=== PATIENT | male | born 1950 | race Two or more races ===

== ENCOUNTER 2017-01-27 14:39 | Emergency (ER) | payer MEDICARE, BC ==
--- NOTE | ~2017-01-27 | ER ---
[facility] 66 Y [address] ROOM: [place] [address] LOCATION: [facility] ADMIT DATE: 01/27/2017 ER/Outpatient Report DISCHARGE DATE: 01/27/2017 FAMILY PHYSICIAN: Renea Garcia MD ATTENDING PHYSICIAN: Dario Swift Time of Arrival: 1439 hours. Time of Evaluation: 1450 hours. CHIEF COMPLAINT: Sharp pain on the top of his head. HISTORY OF PRESENT ILLNESS: This is a 66-year-old male, who presents to the ER, who states he has been having some episodes of pain on the top of his head, and it shoots down the left side of his head. He states that he is being getting these occasionally over the past several months. He states he had an episode of this today just prior to arrival. He states the pain started on the top of his head, radiated down the left side of his face. He states it was very intense and more intense than his other episode, and felt like he was going to black out today. He states he maybe feels a little bit lightheaded from this. He has had no recent illness. No fever or chills. No nausea or vomiting. No weakness. No visual disturbances. He states that they have been playing around with his pain medications. He does have to take a lot of pain medications for his neuropathy. He denies any vomiting, diarrhea, or constipation issues. ALLERGIES AND MEDICATIONS: Please see medication list in nurse's notes. PAST MEDICAL HISTORY: Jyv-sqncral-tulhgvoev diabetic, hypertension, neuropathy. PAST SURGICAL HISTORY: He has had surgery on his shoulder and a tarsal tunnel. SOCIAL HISTORY: Denies smoking or drug use. REVIEW OF SYSTEMS: A 10-point review of system was completed and was negative with the exception of those discussed in the HPI. PHYSICAL EXAMINATION: VITAL SIGNS: Weight 124 kg taken, blood pressure is 137/64, pulse 92, respirations 20, temperature 96.7 degrees tympanically, saturations 94% on PATIENT'S NAME: DIOGENES HANDY [facility] AGE: 66 Y [address] ROOM: [place] [address] LOCATION: [facility] ADMIT DATE: 01/27/2017 ER/Outpatient Report DISCHARGE DATE: 01/27/2017 FAMILY PHYSICIAN: Renea Garcia MD ATTENDING PHYSICIAN: Dario Swift room air. Eve Coma Score is 15. GENERAL: An alert, obese male, in no acute distress. HEENT: Head: Normocephalic. Eyes: Pupils are equal and reactive to light. Ears: TMs display good light reflexes bilaterally. Auditory canals clear. Nose: Turbinates pink with no drainage. Throat: No exudates or erythema. Does display moist mucous membranes. LUNGS: Clear to auscultation bilaterally. HEART: Regular rate and rhythm. EXTREMITIES: No clubbing or cyanosis. He has full range of motion of all limbs. He has equal strength bilaterally in upper and lower extremities. SKIN: Warm, dry, and intact. LABORATORY DATA AND X-RAYS: CBC: White count is 6.8, hemoglobin is 13.3, platelets 175, ANC is 4.2, INR is 0.94. CMS: Glucose was 189 otherwise unremarkable. Magnesium was 1.9. CPK is 87, CK-MB is 2.8, troponin I is less than 0.040. Urinalysis is negative for any infection. We did do an MRI of his head, which was negative, shows mild sinusitis. IMPRESSION: 1. Sharp pain, radiates on the left side of his head. 2. Mild sinusitis. 3. Diabetes. ASSESSMENT AND PLAN: The patient states he does only feel symptomatic with his sinuses. I advised he may take a decongestant if needed. He needs to do a sinus rinse. Monitor his symptoms closely. I would like him to follow up with his primary care physician for followup care. The patient and the patient's understand and agree with care. SAMIR DHALIWAL PA-C FOR MD BENITO GRIMES/ariela /[id number] d: t: 01/30/17 1650, OUTPATIENT REPORT
[~2017-01-27 14:39] MED LIST: ADVIL200 MG PO; AMARYL2 MG PO; ASPERCREME90 GM/TUBE TOP; BENADRYL25 MG PO; BENADRYL50 MG PO; CLEOCIN150 MG PO; FLORASTOR250 MG PO; GLUCOPHAGE500 MG PO; MAG-OX-400(241400 MG PO; MULTIVITAMINS1 EAC1 PO; NEURONTIN300 MG PO; NORVASC2.5 MG PO; OXYCONTIN EXTEN40 MG PO; OXYCONTIN30 MG PO; PERCOCET 10-321 EACH PO; PRINIVIL OR ZES10 MG PO; TYLENOL325 MG PO; VITAMIN B-121000 MCG PO; VITAMIN D35000 UNIT PO
[2017-01-27 15:22] LABS: BASOPHIL # 0.1 K/uL (0.0-0.2); BASOPHIL % 0.7 %; EOSINOPHIL # 0.1 K/uL (0.0-0.5); EOSINOPHIL % 1.5 %; HEMATOCRIT 39.2 % (37.0-53.0); HEMOGLOBIN 13.3 g/dL (11.0-16.0); IMMATURE GRANULOCYTE % 0.4 %; LYMPHOCYTE # 2.1 K/uL (0.8-4.0); LYMPHOCYTE % 30.9 %; MCH 30.8 pg (27.0-34.0); MCHC 33.9 gm/dL (32.0-36.5); MCV 90.7 fl (83.0-98.0); MONOCYTE # 0.3 K/uL (0.0-1.0); MPV 9.5 fl (9.4-12.4); NEUTROPHIL # (ANC) 4.2 K/uL (1.4-9.0); NEUTROPHIL % 61.5 %; NRBC % 0 /100WBC (0-0.00); PLATELET COUNT 175 K/uL (150-450); RBC 4.32 M/uL (3.50-5.50); RDW-CV 12.9 % (11.9-14.6); WBC 6.8 K/uL (4.0-11.0)
[2017-01-27 15:29] LABS: BILIRUBIN URINE NEGATIVE (NEGATIVE); BLOOD URINE NEGATIVE /UL (NEGATIVE); COLOR URINE YELLOW (YELLOW); GLUCOSE URINE NEGATIVE (NEGATIVE); KETONE URINE NEGATIVE (NEGATIVE); LEUKOCYTES URINE NEGATIVE /UL (NEGATIVE); NITRITE URINE NEGATIVE (NEGATIVE); PROTEIN URINE 15 mg/dL (NEGATIVE); TURBIDITY URINE CLEAR (CLEAR); UROBILINOGEN URINE NORMAL (NORMAL)
[2017-01-27 15:32] LABS: INR - (THERAPEUTIC) 0.94 (0.92-1.07); PROTIME 9.9 SECONDS (9.8-11.4); PTT 27 SECONDS (25-32)
[2017-01-27 15:39] LABS: BACTERIA URINE NEGATIVE (NEGATIVE); CRYSTALS URINE CALCIUM OXALATE (NEGATIVE); EPITHELIAL URINE RARE #/HPF (NEGATIVE); MUCUS URINE NEGATIVE (NEGATIVE); RBC URINE NEGATIVE #/HPF (NEGATIVE); WBC URINE RARE #/HPF (NEGATIVE)
[2017-01-27 15:42] LABS: ALBUMIN 3.8 gm/dL (3.5-5.0); ALK PHOS 95 IU/L (33-138); ALT 44 IU/L (12-78); ANION GAP 13.1 (10.0-19.0); AST 35 IU/L (10-40); BLOOD UREA NITROGEN 14 mg/dL (6-24); CALCIUM 9.2 mg/dL (8.5-10.5); CHLORIDE 105 mMol/L (96-110); CO2 26 mMol/L (22-32); CPK 87 IU/L (35-332); CREATININE 0.9 mg/dL (0.6-1.3); ESTIMATED GFR (MDRD EQUATION) > 60; MAGNESIUM 1.9 mg/dL (1.8-2.6); POTASSIUM 4.1 mMol/L (3.7-5.1); SODIUM 140 mMol/L (135-145); TOTAL PROTEIN 7.7 g/dL (6.0-8.4)
[2017-01-27 15:43] LABS: TOTAL BILIRUBIN 0.3 mg/dL (0.0-1.5)
== END 2017-01-27 16:50 | disposition disaster alternative care site (69) ==
LOC: GMED 14:39
PROVIDERS: Physician Assistant Medical
DX: J32.9 Chronic sinusitis, unspecified (principal); E11.9 Type 2 diabetes mellitus without complications; I10 Essential (primary) hypertension; Z88.0 Allergy status to penicillin; Z88.1 Allergy status to other antibiotic agents

== ENCOUNTER 2017-04-11 15:33 | Observation (INO) | payer MEDICARE, BC ==
[~2017-04-11] VITALS: Ht 185.4 cm; Wt 122.9 kg
--- NOTE | ~2017-04-11 | ER ---
PATIENT'S NAME: DIOGENES HANDY [facility] AGE: 67 Y [address] ROOM: [address] [address] [place] [facility] [place]: 04/11/2017 ER/Outpatient Report DISCHARGE DATE: FAMILY PHYSICIAN: Renea Garcia MD ATTENDING PHYSICIAN: Ami MATTA Time of Arrival: 1533 hours. Time of Evaluation: 1545 hours. CHIEF COMPLAINT: Pain, anxiety. HISTORY OF PRESENT ILLNESS: This is a 67-year-old male, who presents to the ER with his family, who states he has been dealing with neuropathy for a very long time. They state that he has tried several different treatments with no relief of his pain. He states his pain is getting worse. He states he used to have it in his legs, and now it is in his hands, up into his shoulders and into his neck. He states the pain makes him feel like he is going to have an anxiety or panic attack. He has been seeing Dr. Renea Garcia for this, and he has been described narcotic pain medication, which he has been overtaking the amount that he is supposed to. He states he has been doubling up on the medication at times. He was started on Zoloft this week for his anxiety, but he states that really has not started yet. His family also states that he has been rubbing a bottle and half of Aspercreme with 4% lidocaine about every hour per day. He states he has gone through several bottles of this over the past several weeks. He states he feels nauseated at times. He does not particularly say he has chest pain but does feel short of breath. His states he is supposed to wear a CPAP mask at night, but he is unable to because he feels like it is suffocating him. He has had no fevers, but he complains of chills. He states he does deal with constipation from all the narcotics that he takes. They state that he does have an appointment at the end of month to see Dr. Garcia in the clinic. states that they have not been sleeping at night, and she just does not know what else to do for him. ALLERGIES: PLEASE SEE MEDICATION LIST IN NURSE'S NOTES. MEDICATIONS: Please see medication list in nurse's notes. PAST MEDICAL HISTORY: 1. Noninsulin-dependent diabetic. 2. Hypertension. 3. Neuropathy. PATIENT'S NAME: DIOGENES HANDY [facility] AGE: 67 Y [address] ROOM: [address] [address] [place] [facility] [place]: 04/11/2017 ER/Outpatient Report DISCHARGE DATE: FAMILY PHYSICIAN: Renea Garcia MD ATTENDING PHYSICIAN: Ami MATTA SOCIAL HISTORY: Drinks alcohol rarely. Quit smoking 10 years ago. REVIEW OF SYSTEMS: All systems were reviewed and were negative with the exception of those discussed in the HPI. PHYSICAL EXAMINATION: VITAL SIGNS: Height 6 feet 1 inch stated, weight 122.9 kg taken, blood pressure is 166/81, pulse 94, respirations 16, temperature 98.6 degrees tympanically, and saturations 95% on room air. [place] Coma Score is 15. GENERAL: Alert, very anxious male, in ougj-oz-trhyupsb distress. HEENT: Head: Normocephalic. Eyes: Pupils are equal and reactive to light. Throat: No exudates or erythema. He does display moist mucous membranes. NECK: Supple. No lymphadenopathy. LUNGS: Clear to auscultation bilaterally. HEART: Regular rate and rhythm. ABDOMEN: Soft. He is nontender. He has good bowel sounds throughout. No masses are palpated. EXTREMITIES: No clubbing or cyanosis. He does have full range of motion of all limbs. He does have equal sensation bilaterally to upper and lower extremities. He has good pedal pulses bilaterally. NEUROLOGIC: Cranial nerves 2 through 12 grossly intact. Gait is steady without assistance. LABORATORY DATA AND X-RAYS: CBC: White count of 7.7, hemoglobin is 13.4, platelets 182, ANC is 5.2, sedimentation rate is 22. CMS: Sodium is 139, potassium 3.7, BUN is 18, creatinine is 1.0. CPK is 84, CK-MB is 2.1, troponin I is less than 0.040. CRP is less than 0.29, free T4 is 1.2, TSH is 0.827. Acetaminophen is less than 2.0. Salicylate is less than 2.8. Urinalysis was negative for any infection. Venous ABG: The pH is 7.45, pCO2 is 39, bicarb is 27.1. Lactate is 1.9. EKG shows sinus rhythm. IMPRESSION: 1. Pain from chronic neuropathy. 2. Anxiety. 3. History of diabetes. 4. History of hypertension. ASSESSMENT AND PLAN: We did establish an IV here in the emergency room and did give him some IV fluids. We did give him 1 mg of Ativan, which did calm him down nicely. The patient's family are wishing for him to stay in the hospital to get his pain PATIENT'S NAME: DIOGENES HANDY [facility] AGE: 67 Y [address] ROOM: [place] [address] [place] [facility] [place]: 04/11/2017 ER/Outpatient Report DISCHARGE DATE: FAMILY PHYSICIAN: Renea Garcia MD ATTENDING PHYSICIAN: Ami MATTA under control. I did call the Hospitalist Service, and they will be coming in to evaluate the patient here in the emergency room. I will be turning the care over to the Hospitalist at this time. The patient and patient's family understand and agree with care. SAMIR DHALIWAL PA-C FOR MD BENITO GRIMES/ariela /[id number] d: t: 04/22/17 1325, OUTPATIENT REPORT
--- NOTE | ~2017-04-11 | DS ---
PATIENT'S NAME: DIOGENES HANDY [facility] AGE: 67 Y [address] ROOM: [place] [address] [place] [facility] [place]: 04/11/2017 Discharge Summary DISCHARGE DATE: 04/12/2017 FAMILY PHYSICIAN: Renea Garcia MD ATTENDING PHYSICIAN: Ami Sims ADMITTING DIAGNOSIS: Intractable diabetic peripheral neuropathy. DISCHARGE DIAGNOSIS: Intractable diabetic peripheral neuropathy. SECONDARY DIAGNOSES: 1. General anxiety. 2. Hypertension. 3. Diabetes mellitus, type 2. 4. Obstructive sleep apnea. CONSULTATION: Neurology. HISTORY OF PRESENT ILLNESS: The patient is a 67-year-old gentleman with a past medical history of diabetic peripheral neuropathy, who presents here with intractable pain. The patient reports that for the past 1-1/2 weeks he has been experiencing severe pins and needles pain in his extremities. The patient is taking oxycodone, ibuprofen, and Percocet without adequate improvement. The patient also reports of anxiety associated with his symptoms. The patient has had multiple workups as an outpatient including Neurology visit, MRI, gabapentin use, Lyrica use, and recent stem cell therapy. HOSPITAL COURSE: The patient was admitted and was continued on Percocet and morphine IV. The patient was given a trial of carbamazepine 600 mg p.o. The patient's symptoms did not improve with the carbamazepine. Neurology consult was acquired. Neurology recommends the patient's symptoms to be treated with opiates and have Pain Clinic visit. CONDITION: Stable. DISPOSITION: Home. DISCHARGE MEDICATIONS: See MAR. DISCHARGE INSTRUCTIONS: 1. Not to drive while taking Valium. 2. Follow up with primary care physician. Greater than 30 minutes was spent on discharge planning. PATIENT'S NAME: DIOGENES HANDY [facility] AGE: 67 Y [address] ROOM: [place] [address] [place] [facility] [place]: 04/11/2017 Discharge Summary DISCHARGE DATE: 04/12/2017 FAMILY PHYSICIAN: Renea Garcia MD ATTENDING PHYSICIAN: Ami Sims MD JO SOLITARIO/ariela /[id number] d: 04/13/17 0353 t: 04/20/17 0616, DISCHARGE SUMMARY
--- NOTE | ~2017-04-11 | CON ---
PATIENT'S NAME: DIOGENES HANDY [facility] AGE: 67 Y [address] ROOM: [place] [address] [place]: [facility] [place] ADMIT DATE: 04/11/2017 Consultation DISCHARGE DATE: 04/12/2017 FAMILY PHYSICIAN: Renea Garcia MD ATTENDING PHYSICIAN: Ami Sims DATE OF CONSULTATION: 04/12/2017 REFERRING PHYSICIAN: Keli Wade MD TIME OF CONSULTATION: 12:15 p.m. CHIEF COMPLAINT: Intractable peripheral polyneuropathy. HISTORY OF PRESENT ILLNESS: This is a 67-year-old male who was seen in our Neurology Clinic in November. He has a long-standing history of polyneuropathy with extensive workup. This presents as pins and needles in his extremities, both his feet and hands. The patient is taking oxycodone, ibuprofen, and Percocet for his pain without improvement. The patient also reports feelings of anxiety associated with his symptoms. He is having a hard time sleeping and would really like further evaluation. Other things that the patient has tried include gabapentin and Lyrica and Cymbalta without any improvement. He has seen multiple physicians and neurologists for this including physicians at the [facility]. He has previously been treated with possible CIDP although that has been ruled out. Treatment with plasmapheresis and IVIG did not help at all. He has also had a punch biopsy of his left thigh, which showed epidermal nerve fiber density which is consistent with small fiber neuropathy. Unfortunately, this is a very painful neuropathy and is difficult to treat. PAST MEDICAL HISTORY: Includes, 1. Diabetes mellitus type 2. 2. Peripheral polyneuropathy. 3. Hypertension. 4. Obesity. 5. Hyperlipidemia. 6. Discomfort of submandibular region with osteomyelitis. 7. Cervical spinal stenosis. 8. Vitamin D deficiency. 9. Chronic constipation. 10. Chronic sinusitis. PAST SURGICAL HISTORY: [facility] 67 Y [address] ROOM: [place] [address] [place]: [facility] [place] ADMIT DATE: 04/11/2017 Consultation DISCHARGE DATE: 04/12/2017 FAMILY PHYSICIAN: Renea Garcia MD ATTENDING PHYSICIAN: Ami Sims Includes foot surgery and shoulder surgery. FAMILY HISTORY: He is unaware of his father's cause of and his mother has type 2 diabetes. SOCIAL HISTORY: He seldom imbibes in alcoholic beverages and quit smoking 10 years ago. 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 ALLERGIES: TO PENICILLIN AND CEFTIN. MEDICATIONS: 1. Metformin 500 mg p.o. b.i.d. 2. Glimepiride 2 mg p.o. nightly. 3. Norvasc daily. 4. Percocet 10 mg/325 p.r.n. 5. Oxycodone 10 mg p.r.n. 6. Ibuprofen 400 mg. 7. Zoloft 25 mg at night. REVIEW OF SYSTEMS: All systems were reviewed and were negative except for those mentioned in the HPI. PHYSICAL EXAMINATION: VITAL SIGNS: His blood pressure is 154/80, temperature of 98.6, pulse rate of 88, respiratory rate of 16, and oxygen saturations are 96% on room air. GENERAL APPEARANCE: The patient is alert, awake, and a good historian. He is in no acute distress and is impeccably groomed. NEUROLOGIC: He is alert and oriented x4. Moves all extremities well. Equal strength, upper and lower. Has a stocking and glove peripheral neuropathy, pins and needles pattern. Proprioception is impaired in the lower extremities. Sensation to upper and lower extremities intact. CARDIAC: S1, S2, with no murmur noted. RESPIRATORY: Clear to auscultation bilaterally. SKIN: Intact without evidence of venous staining. Peripheral pulses are 2+ in his feet. ASSESSMENT AND PLAN: Unfortunately, this individual has tried multiple modalities for his peripheral neuropathy pain. We would recommend continuing the Tegretol for at least 2 weeks to see if it is any benefit whatsoever. Since the patient has already been on multiple medications for the neuropathy, it may be best to PATIENT'S NAME: DIOGENES HANDY [facility] AGE: 67 Y [address] ROOM: [place] [address] LOC[place]: [facility] [place] ADMIT DATE: 04/11/2017 Consultation DISCHARGE DATE: 04/12/2017 FAMILY PHYSICIAN: Renea Garcia MD ATTENDING PHYSICIAN: Ami Sims consult the Pain Management Team for a possible pain pump or even some compounded creams including Lyrica and Aspercreme base. The plan of care was relayed with the patient and Dr. Sims. The patient and were at the bedside to discuss the plan of care with Dr. Pa and myself. It took us 30 minutes to examine the patient, review the extensive history on this patient from the outpatient clinic and follow up with this patient. If you have any questions, please do not hesitate to notify us. Thank you for this very interesting consult and we wish him the best of luck. KRISTAL PATEL APRN FOR IKE PA MD PP/ariela /[id number] d: 04/13/17 2148 t: 04/16/17 1623, CONSULTATION REPORT
--- NOTE | ~2017-04-11 | HP ---
PATIENT'S NAME: DIOGENES HANDY [facility] AGE: 67 Y [address] ROOM: [place] [address] [place] [facility] [place]: 04/11/2017 History & Physical DISCHARGE DATE: FAMILY PHYSICIAN: Renea Garcia MD ATTENDING PHYSICIAN: Ami MATTA DATE OF SERVICE: CHIEF COMPLAINT: Intractable peripheral polyneuropathy. HISTORY OF PRESENT ILLNESS: The patient is a 67-year-old gentleman with past medical history of diabetic peripheral neuropathy, diabetes mellitus type 2, and hypertension, who presents here with intractable pain. The patient reports that for the past one and half weeks he has been experiencing severe pins and needles pain in his extremities. He reports that he has pain in his both feet and hands. The patient is taking oxycodone, ibuprofen, and Percocet for his pain without improvement. The patient also reports of anxiety associated with this symptom. The patient is having hard time sleeping and was brought in the family for further evaluation. The patient reports that he has been on gabapentin and Lyrica in the past without any improvement and also been on Cymbalta without no improvement. He has seen multiple physicians and neurologist for his issues. He reports that he has been having this for 10 years and has had multiple workup including MRI and was empirically treated for CIDP with IVIG and plasmapheresis without improvement. The patient recently had stem-cell treatment without adequate improvement. The patient currently denies of any fever, chills, productive cough, fever, shortness of breath, chest pain, abdominal pain, nausea, vomiting, diarrhea, and constipation. PAST MEDICAL HISTORY: Diabetes mellitus, type 2, peripheral polyneuropathy, hypertension, and obesity. PAST SURGICAL HISTORY: Foot surgery and shoulder surgery. FAMILY HISTORY: Reports that his mom was type 2 diabetic and does not know why his dad . SOCIAL HISTORY: He quit smoking 10 years ago and seldomly drinks. 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 PATIENT'S NAME: DIOGENES HANDY [facility] AGE: 67 Y [address] ROOM: [place] [address] [place] [facility] [place]: 04/11/2017 History & Physical DISCHARGE DATE: FAMILY PHYSICIAN: Renea Garcia MD ATTENDING PHYSICIAN: Ami MATTA ALLERGIES: PENICILLIN AND CEFTIN. MEDICATIONS: 1. Metformin 500 mg p.o. b.i.d. 2. Glimepiride 2 mg p.o. nightly. 3. Norvasc daily. 4. Percocet 10 mg/325 p.r.n. 5. Oxycodone 10 mg p.r.n. 6. Ibuprofen 400 mg. 7. Zoloft 25 mg night. REVIEW OF SYSTEMS: All systems have been reviewed and are negative except for mentioned in the HPI. PHYSICAL EXAMINATION: VITAL SIGNS: Blood pressure 166/81, temperature of 98.6, pulse rate of 94, respiratory rate 16, and oxygen saturation of 95 on room air. GENERAL APPEARANCE: The patient alert and awake, in no acute distress. LABORATORY DATA: A pH of 7.45, pCO2 of 39, bicarb of 27. Troponin x1 negative. White blood cell count of 7.7, hemoglobin of 13.4, platelet of 182. Glucose 125, BUN 18, creatinine 1, sodium 139, potassium 3.7, chloride 106, CO2 of 25, total bilirubin of 0.4. UA is unremarkable. ASSESSMENT AND PLAN: 1. Intractable diabetic peripheral polyneuropathy. The patient with significant history of diabetic polyneuropathy, who has had extensive workup and treatment including IVIG, plasmapheresis, and stem cell, presenting with intractable pain associated with anxiety. The patient has been on gabapentin, Lyrica, and citalopram in the past. We will try carbamazepine. We will give 200 mg now and repeat dose until symptoms improved. We will repeat the dose 3 times every 2 hours until symptoms improve and we will reassess in the morning. We will continue his Percocet and we will add IV morphine. We will assist in the morning. Continue Percocet and IV morphine. We will also acquire Neurology consult in the morning. 2. General anxiety. The patient reports he has been having anxiety. He is currently on Zoloft. We will add Valium as needed. 3. Diabetic mellitus type 2. Continue metformin and glimepiride. 4. Hypertension. Continue Norvasc. 5. Obesity, ongoing. PATIENT'S NAME: DIOGENES HANDY [facility] AGE: 67 Y [address] ROOM: [place] [address] [place] [facility] [place]: 04/11/2017 History & Physical DISCHARGE DATE: FAMILY PHYSICIAN: Renea Garcia MD ATTENDING PHYSICIAN: Ami MATTA Greater than 35% was spent on the patient care. Greater than 50% of time was spent on direct patient care. Assessment and plan was discussed with the patient. All question was answered with satisfaction. We will admit the patient for failed outpatient treatment. Code status discussed. Code status full code. MD JO SOLITARIO/hernanl /[id number] D: T: [id number] HISTORY & PHYSICAL
[2017-04-11 16:35] LABS: BICARBONATE 27.1 mmol/L (18.0-23.0); LACTATE 1.9 mEq/L (0.50-1.60); PCO2 39 mmHg (35-45); PO2 68 mmHg (80-90)
[2017-04-11 16:36] LABS: BASOPHIL % 0.3 %; EOSINOPHIL % 0.5 %; HEMATOCRIT 37.9 % (37.0-53.0); HEMOGLOBIN 13.4 g/dL (11.0-16.0); IMMATURE GRANULOCYTE % 0.3 %; LYMPHOCYTE # 1.8 K/uL (0.8-4.0); LYMPHOCYTE % 23.6 %; MCHC 35.4 gm/dL (32.0-36.5); MCV 90.5 fl (83.0-98.0); MONOCYTE # 0.6 K/uL (0.0-1.0); MONOCYTE % 7.9 %; NEUTROPHIL # (ANC) 5.2 K/uL (1.4-9.0); NEUTROPHIL % 67.4 %; NRBC % 0 /100WBC (0-0.00); PLATELET COUNT 182 K/uL (150-450); RBC 4.19 M/uL (3.50-5.50); WBC 7.7 K/uL (4.0-11.0)
[2017-04-11 16:57] LABS: ALBUMIN 3.6 gm/dL (3.5-5.0); ALK PHOS 73 IU/L (33-138); ALT 45 IU/L (12-78); ANION GAP 11.7 (10.0-19.0); AST 36 IU/L (10-40); BLOOD UREA NITROGEN 18 mg/dL (6-24); CALCIUM 8.8 mg/dL (8.5-10.5); CHLORIDE 106 mMol/L (96-110); CO2 25 mMol/L (22-32); CPK 84 IU/L (35-332); POTASSIUM 3.7 mMol/L (3.7-5.1); SODIUM 139 mMol/L (135-145); TOTAL PROTEIN 7.2 g/dL (6.0-8.4)
[2017-04-11 16:59] LABS: TOTAL BILIRUBIN 0.4 mg/dL (0.0-1.5)
[2017-04-11 18:15] LABS: BILIRUBIN URINE NEGATIVE (NEGATIVE); BLOOD URINE NEGATIVE /UL (NEGATIVE); COLOR URINE YELLOW (YELLOW); GLUCOSE URINE NEGATIVE (NEGATIVE); KETONE URINE NEGATIVE (NEGATIVE); LEUKOCYTES URINE NEGATIVE /UL (NEGATIVE); NITRITE URINE NEGATIVE (NEGATIVE); PROTEIN URINE NEGATIVE (NEGATIVE); TURBIDITY URINE CLEAR (CLEAR); UROBILINOGEN URINE NORMAL (NORMAL)
[2017-04-11] MEDS ORDERED: ZOLOFT50 MG PO (20:18)
[2017-04-11] MEDS ORDERED: ZOLOFT100 MG PO (20:19)
[2017-04-11] MEDS ORDERED: CLARITIN10 MG PO (20:20)
[2017-04-11] MEDS ORDERED: METANX CAPSULE1 EACH PO (20:22)
[2017-04-11] MEDS ORDERED: SYMBICORT 16010.2 GM INH (20:23)
--- NOTE | 2017-04-12 04:25 | NUR ---
Significant Event: PT admitted approx 2030 last evening for intractable pain. Hx diabetes and has been experiencing diabetic neuropathy for about 10 years. About 1 month ago pt underwent experimental stem julian transplant for this pain which has not helped per pt report. Allergies to PCN, ceftin, e mycin just to name a few. He is alert and oriented. IV to left AC is saline locked. Also pt has been using percocet and oxycodene at home along with 1 1/2 bottles of aspercream daily with no relief. Follow up: Pain mgmt.
[2017-04-12] MEDS ORDERED: PROVENTIL OR V6.7 GM INH (09:48)
[2017-04-12] MEDS ORDERED: OXYCODONE HCL10 MG PO (09:50)
--- NOTE | 2017-04-12 13:15 | NUR ---
Met with patient and at bedside today. Introduced myself and explained my role with the CM department. Patient lives at home with his . They both deny having any needs at this time and they do not anticipate having any discharge needs. Will continue to follow and offer supports as needed.
[2017-04-12] MEDS ORDERED: VALIUM5 MG PO (14:24)
--- NOTE | 2017-04-12 16:03 | NUR ---
DISCHARGE: Pt. and were explained discharge instructions. Educated on diabetic neuropathy and new medication: Valium. Verbalized understanding, no questions or concerns. IV removed and pressure held. Left with all belongings and prescriptions. Taken to front door by aides and driven home by .
== END 2017-04-12 15:05 | disposition disaster alternative care site (69) ==
LOC: GMED 15:33 → GMSU 19:15
PROVIDERS: Emergency Medicine; ADMIT Internal Medicine
DX: E11.42 Type 2 diabetes mellitus with diabetic polyneuropathy (principal); F41.1 Generalized anxiety disorder; I10 Essential (primary) hypertension; G47.33 Obstructive sleep apnea (adult) (pediatric); E66.9 Obesity, unspecified; E78.5 Hyperlipidemia, unspecified; M48.02 Spinal stenosis, cervical region; K59.09 Other constipation; J32.9 Chronic sinusitis, unspecified; Z88.1 Allergy status to other antibiotic agents; Z87.891 Personal history of nicotine dependence; Z98.890 Other specified postprocedural states; Z79.899 Other long term (current) drug therapy; Z88.0 Allergy status to penicillin
CPT/HCPCS: G0378; G0480; J1650; J2060; J2270; J7030